=== PATIENT | male | born 1955 | race African-American/Black ===

== ENCOUNTER 2021-12-06 13:53 | Emergency (ER) | payer OTHER ==
[~2021-12-06] VITALS: Ht 180.3 cm; Wt 55.4 kg
[~2021-12-06 13:53] MED LIST: LISI40TA13
[2021-12-06 14:30] VITALS: BP 132/78
[2021-12-06] MEDS ORDERED: DOXY100C5 MT (18:05)
[2021-12-06] MEDS ORDERED: DOXYCYCLINE HYCLATE 100MG CAPSULE PO ONE (18:15)
[2021-12-06] MEDS ORDERED: CEFTRIAXONE SODIUM 500 MG/VIAL IM ONE (18:15)
== END 2021-12-06 18:54 | disposition home or self-care (01) ==
LOC: ER 14:14
DX: U07.1 COVID-19 (principal); Z98.890 Other specified postprocedural states; Z86.73 Personal history of transient ischemic attack (TIA), and cerebral infarction without residual deficits
CPT/HCPCS: 71045; 87426; 96372; 99284; C9803; J0696

== ENCOUNTER 2022-01-03 13:34 | Emergency (ER) | payer MEDICARE, OTHER ==
[~2022-01-03] VITALS: Ht 188 cm; Wt 55.0 kg
[~2022-01-03 13:34] MED LIST changes: +DOXY100C5 MT
[2022-01-03 14:00] VITALS: BP 131/81
[2022-01-03 16:02] LABS: BASOPHILS % 0.7 % (0.0-2.0); EOSINOPHILS % 0.6 % (0.0-5.0); HEMATOCRIT. 37.8 % (42.0-52.0); HEMOGLOBIN. 12.9 g/dL (14.0-18.0); LYMPHOCYTES % 14.9 % (20.0-50.0); MEAN CORPUSCULAR HEMOGLOBIN 31.3 pg (28.0-32.0); MEAN PLATELET VOLUME 8.9 fl (7.4-10.4); MONOCYTES % 6.4 % (2.0-8.0); NEUTROPHILS % 77.4 % (40.0-76.0); PLATELET 191 x1000/uL (130-400); RED CELL DISTRIBUTION WIDTH 14.4 % (11.6-14.6)
[2022-01-03 16:03] LABS: CHLORIDE 106 mEq/L (98-107)
== END 2022-01-03 17:50 | disposition home or self-care (01) ==
LOC: ER 13:34
DX: K59.00 Constipation, unspecified (principal); I10 Essential (primary) hypertension; E11.9 Type 2 diabetes mellitus without complications; Z98.890 Other specified postprocedural states; Z86.73 Personal history of transient ischemic attack (TIA), and cerebral infarction without residual deficits
CPT/HCPCS: 36415; 71045; 80053; 84484; 85025; 99283

== ENCOUNTER 2022-02-11 06:33 | Emergency (ER) | payer MEDICARE, OTHER ==
[~2022-02-11] VITALS: Ht 180.3 cm; Wt 98.0 kg
[2022-02-11 06:53] VITALS: BP 138/101
[2022-02-11] MEDS ORDERED: CEFTRIAXONE SODIUM 500 MG/VIAL IM ONE (08:00)
[2022-02-11] MEDS ORDERED: DOXY100C5 MT (09:04)
[2022-02-11 09:16] LABS: CLARITY URINE CLEAR (CLEAR); COLOR URINE YELLOW (YELLOW); KETONES URINE NEGATIVE (NEGATIVE); LEUKOCYTE ESTERASE URINE NEGATIVE (NEGATIVE); NITRITE URINE NEGATIVE (NEGATIVE); OCCULT BLOOD URINE TRACE (NEGATIVE); PH URINE 5.5 (4.5-8.0); PROTEIN URINE TRACE (NEGATIVE); SPECIFIC GRAVITY URINE 1.013 (1.005-1.030); UROBILINOGEN URINE 0.2 E.U./dL (0.2-1.0)
== END 2022-02-11 09:05 | disposition home or self-care (01) ==
LOC: ER 06:33
DX: Z20.2 Contact with and (suspected) exposure to infections with a predominantly sexual mode of transmission (principal); I10 Essential (primary) hypertension
CPT/HCPCS: 81003; 96372; 99283; J0696

== ENCOUNTER 2022-04-11 10:54 | Emergency (ER) | payer MEDICARE, OTHER ==
[~2022-04-11] VITALS: Ht 172.7 cm; Wt 75.0 kg
[2022-04-11] MEDS ORDERED: IBUP-2028 MT (11:59)
[2022-04-11] MEDS ORDERED: KETOROLAC 60MG/2ML VIAL IM ONE (12:00)
[2022-04-11 12:25] VITALS: BP 136/94
== END 2022-04-11 13:16 | disposition home or self-care (01) ==
LOC: ER 11:21
DX: M54.2 Cervicalgia (principal); M25.512 Pain in left shoulder; I10 Essential (primary) hypertension; Z79.899 Other long term (current) drug therapy
CPT/HCPCS: 73030; 96372; 99283; J1885

== ENCOUNTER 2022-06-16 20:14 | Emergency (ER) | payer MEDICARE, OTHER ==
[~2022-06-16] VITALS: Ht 180.3 cm; Wt 55.3 kg
[~2022-06-16 20:14] MED LIST changes: +IBUP-2028 MT
[2022-06-16 20:57] LABS: BASOPHILS % 0.6 % (0.0-2.0); EOSINOPHILS % 1.6 % (0.0-5.0); HEMATOCRIT. 37.5 % (42.0-52.0); HEMOGLOBIN. 12.7 g/dL (14.0-18.0); LYMPHOCYTES % 22.1 % (20.0-50.0); MEAN CORPUSCULAR HEMOGLOBIN 31.1 pg (28.0-32.0); MEAN CORPUSCULAR VOLUME 92.2 fL (80.0-94.0); MEAN PLATELET VOLUME 8.2 fl (7.4-10.4); MONOCYTES % 7.4 % (2.0-8.0); NEUTROPHILS % 68.3 % (40.0-76.0); PLATELET 202 x1000/uL (130-400); RED BLOOD CELL COUNT 4.07 mill/uL (4.7-6.1); RED CELL DISTRIBUTION WIDTH 14.4 % (11.6-14.6)
[2022-06-16 21:04] LABS: CHLORIDE 109 mEq/L (98-107)
[2022-06-16 21:13] LABS: ETHANOL BLOOD < 10 mg/dL
[2022-06-16] MEDS ORDERED: KETOROLAC 30MG/ML VIAL IV ONE (21:30)
[2022-06-16] MEDS ORDERED: ASPIRIN 325MG EC TABLET PO ONE (21:30)
[2022-06-16] MEDS ORDERED: POTASSIUM CHLORIDE 20MEQ TABLET SR PO ONE (21:30)
[2022-06-16] MEDS ORDERED: METHYLPREDNISOLONE SOD SUCC 125 MG/2 ML VIAL IV ONE (21:30)
[2022-06-16] MEDS ORDERED: IPRATROPIUM/ALBUTEROL 0.5-3(2.5)MG/3ML NEB HHN ONE (21:30)
[2022-06-17] MEDS ORDERED: ALBU6.7H3 INH (00:03)
[2022-06-17] MEDS ORDERED: POLY119P2 MT (00:03)
[2022-06-17 00:15] VITALS: BP 135/86
== END 2022-06-17 00:20 | disposition home or self-care (01) ==
LOC: ER 20:19
DX: J44.9 Chronic obstructive pulmonary disease, unspecified (principal); I10 Essential (primary) hypertension; F12.10 Cannabis abuse, uncomplicated; Z79.899 Other long term (current) drug therapy
CPT/HCPCS: 36415; 71045; 74176; 80053; 80320; 84484; 85025; 93005; 94640; 99285; G0480

== ENCOUNTER 2023-03-07 07:53 | Emergency (ER) | payer MEDICARE, OTHER ==
[~2023-03-07] VITALS: Ht 182.9 cm; Wt 75.0 kg
[~2023-03-07 07:53] MED LIST changes: +ALBU6.7H3 INH; +POLY119P2 MT
[2023-03-07 08:13] VITALS: BP 145/94; PULSE 90; RESP 16; TEMP 98.6; O2SAT 97
[2023-03-07] MEDS ORDERED: DOXY100T2 MT (08:39)
[2023-03-07] MEDS ORDERED: CEFTRIAXONE SODIUM 500 MG/VIAL IM ONE (08:45)
[2023-03-07] MEDS ORDERED: DOXYCYCLINE HYCLATE 100MG CAPSULE PO ONE (08:45)
[2023-03-07 09:18] LABS: EOSINOPHILS % 1.5 % (0.0-5.0); HEMOGLOBIN. 14.8 g/dL (14.0-18.0); MEAN CORPUSCULAR HEMOGLOBIN 30.9 pg (28.0-32.0); MEAN CORPUSCULAR HGB CONC 33.5 g/dL (31.0-37.0); MEAN CORPUSCULAR VOLUME 92.2 fL (80.0-94.0); MEAN PLATELET VOLUME 8.8 fl (7.4-10.4); NEUTROPHILS % 68.5 % (40.0-76.0); PLATELET 226 x1000/uL (130-400); RED BLOOD CELL COUNT 4.77 mill/uL (4.7-6.1); RED CELL DISTRIBUTION WIDTH 14.3 % (11.6-14.6); WHITE BLOOD COUNT 5.3 x1000/uL (4.5-11.0)
[2023-03-07 09:41] LABS: CLARITY URINE CLEAR (CLEAR); COLOR URINE YELLOW (YELLOW); GLUCOSE URINE NEGATIVE (NEGATIVE); KETONES URINE NEGATIVE (NEGATIVE); LEUKOCYTE ESTERASE URINE NEGATIVE (NEGATIVE); NITRITE URINE NEGATIVE (NEGATIVE); OCCULT BLOOD URINE TRACE (NEGATIVE); PROTEIN URINE NEGATIVE (NEGATIVE); SPECIFIC GRAVITY URINE 1.015 (1.005-1.030); UROBILINOGEN URINE 0.2 E.U./dL (0.2-1.0)
[2023-03-07 09:50] LABS: ALANINE AMINOTRANSFERASE 23 IU/L (10-49); ALBUMIN 4.3 g/dL (3.2-4.8); ASPARTATE AMINOTRANSFERASE 28 IU/L (<34); BILIRUBIN TOTAL 0.5 mg/dL (0.1-1.0); CALCIUM 9.8 mg/dL (8.7-10.4); CARBON DIOXIDE 30 mEq/L (21-32); CHLORIDE 106 mEq/L (98-107); CREATININE 0.8 mg/dL (0.6-1.3); GLUCOSE 84 mg/dL (70-105); POTASSIUM 3.8 mEq/L (3.5-5.1); PROTEIN TOTAL 7.9 g/dL (6.0-8.3); SODIUM 143 mEq/L (136-145); UREA NITROGEN BLOOD 14 mg/dL (9-23)
[2023-03-07 10:10] LABS: MUCUS URINE 1+ /lpf (NONE/TRACE)
[2023-03-07 10:11] LABS: BACTERIA URINE TRACE; RBC URINE 0-2 /hpf (0-2); SQUAMOUS EPITHELIAL CELL URINE RARE /lpf (RARE/1+); WBC URINE 0-2 /hpf (0-2)
== END 2023-03-07 09:54 | disposition home or self-care (01) ==
LOC: ER 07:53
DX: R30.0 Dysuria (principal); I10 Essential (primary) hypertension; E78.00 Pure hypercholesterolemia, unspecified
CPT/HCPCS: 99283; 80053; 81003; 85025; 36415; 96372; J0696

== ENCOUNTER 2023-10-04 05:13 | Emergency (ER) | payer MEDICARE, OTHER ==
[~2023-10-04] VITALS: Ht 177.8 cm; Wt 63.0 kg
[~2023-10-04 05:13] MED LIST changes: +DOXY100T2 MT
[2023-10-04 05:47] VITALS: O2SAT 100
[2023-10-04] MEDS: DOXYCYCLINE HYCLATE 100MG CAPSULE PO ONE (06:53)
[2023-10-04] MEDS: LIDOCAINE HCL 1% 20ML VIAL INFIL ONE (06:53)
[2023-10-04] MEDS: CEFTRIAXONE SODIUM 1G VIAL IM ONE (06:54)
[2023-10-04 06:55] LABS: CLARITY URINE CLEAR (CLEAR); COLOR URINE YELLOW (YELLOW); GLUCOSE URINE NEGATIVE (NEGATIVE); KETONES URINE NEGATIVE (NEGATIVE); LEUKOCYTE ESTERASE URINE NEGATIVE (NEGATIVE); NITRITE URINE NEGATIVE (NEGATIVE); OCCULT BLOOD URINE NEGATIVE (NEGATIVE); PROTEIN URINE NEGATIVE (NEGATIVE); SPECIFIC GRAVITY URINE 1.012 (1.005-1.030)
[2023-10-04] MEDS ORDERED: DOXY100T2 PO (07:11)
[2023-10-04 07:20] VITALS: BP 130/70; PULSE 88; RESP 16; TEMP 98.4
[2023-10-06 08:13] LABS: CHLAMYDIA TRACHOMATIS NAA Negative (Negative); NEISSERIA GONORRHOEAE NAA Negative (Negative)
== END 2023-10-04 07:20 | disposition home or self-care (01) ==
LOC: ER 05:29
DX: R30.0 Dysuria (principal); E78.00 Pure hypercholesterolemia, unspecified; I10 Essential (primary) hypertension; F12.10 Cannabis abuse, uncomplicated; Z79.899 Other long term (current) drug therapy; Z20.2 Contact with and (suspected) exposure to infections with a predominantly sexual mode of transmission; Z20.822 Contact with and (suspected) exposure to COVID-19
CPT/HCPCS: 99283; 87426; 87491; 87591; 81003; 96372; J0696; J3490

== ENCOUNTER 2024-09-16 13:55 | Emergency (ER) | payer MEDICARE, OTHER ==
[~2024-09-16] VITALS: Ht 177.8 cm; Wt 68.0 kg
[~2024-09-16 13:55] MED LIST changes: +ASPI-1406 PO; +ATOR-388 PO; +DOXY100T2 PO; +LISI20TA31 PO
[2024-09-16 14:36] VITALS: TEMP 36.7; O2SAT 99
[2024-09-16] MEDS ORDERED: CLOT15CR27 TP (15:27)
[2024-09-16] MEDS ORDERED: DOXY100T2 MT (15:27)
[2024-09-16 15:51] VITALS: BP 178/116; PULSE 71; RESP 18; O2SAT 100
== END 2024-09-16 15:55 | disposition home or self-care (01) ==
LOC: ER 13:55
DX: I10 Essential (primary) hypertension (principal); Z11.3 Encounter for screening for infections with a predominantly sexual mode of transmission; Z20.2 Contact with and (suspected) exposure to infections with a predominantly sexual mode of transmission; E78.00 Pure hypercholesterolemia, unspecified; Z79.82 Long term (current) use of aspirin; Z79.899 Other long term (current) drug therapy
CPT/HCPCS: 99281